=== PATIENT | male | born 1965 | race Caucasian/White ===

== ENCOUNTER 2022-04-29 13:40 | Emergency (ER) | payer BC, SELFPAY ==
--- NOTE | ~2022-04-29 | XR_ITS ---
XR chest 1V portable DATE: 04/29/2022 14:42 INDICATION: Dizziness. History of hypertension. TECHNIQUE: Portable AP chest COMPARISON: None FINDINGS: Normal heart size. No hilar or mediastinal enlargement. No pulmonary infiltrate or consolid ation, pleural effusion or pulmonary vascular congestion or pneumothorax is detected. There is degenerative spurring of the thoracic spine. IMPRESSION: No active cardiac pulmonary disease Reviewed, dictated and finalized at location [facility].
--- NOTE | ~2022-04-29 | CT_ITS ---
EXAMINATION: CT brain wo con DATE: 04/29/2022 14:39 INDICATION: Dizziness TECHNIQUE: Computed tomography (CT) of the head was performed without intravenous contrast. The mA wa s adjusted according to patient size. Iterative reconstruction technique was employed. Exam dose: 60 5.33 mGy-cm total exam DLP. COMPARISON: None FINDINGS: Mild bilateral carotid siphon internal carotid artery atherosclerotic calcification. No intracranial mass lesion or hemorrhage or cerebrovascular accident. No midline shift or mass effec t effect. Ventricular size is within normal range. No subdural or epidural hematoma. Orbital contents are unremarkable. No fracture or bone destruction of the cranial vault. Included mastoid air cells and paranasal sinuse s are normally developed and aerated. IMPRESSION: Mild cerebral atherosclerosis; no acute intracranial abnormality Reviewed, dictated and finalized at [facility]. Reviewed, dictated and finalized at location [facility].
[2022-04-29 13:46] VITALS: BP 156/93; PULSE 70; RESP 16; TEMP 36.6; O2SAT 98
--- NOTE | 2022-04-29 13:55 | ECG_ITS ---
Measurements Intervals [place] Rate: 61 P: 76 CO: 188 QRS: 44 QRSD: 87 T: 56 QT: 382 QTc: 385 Interpretive Statements SINUS RHYTHM NORMAL ECG NO PREVIOUS ECG AVAILABLE FOR COMPARISON Electronically Signed On 04-29-2022 14:11:10 CDT by Juan Mccullough D.O.
[2022-04-29 14:28] LABS: Basophils Absolute Auto 0.1 K/mm3 (0.0-0.1); Basophils Percent Auto 0.6 % (0.2-1.2); Eosinophils Absolute Auto 0.1 K/mm3 (0-0.3); Eosinophils Percent Auto 1.4 % (0-4.4); Hematocrit 47.7 % (42.0-52.0); Hemoglobin 16.2 g/dL (14.0-18.0); Immature Granulocyte Absolute 0.02 K/mm3 (0.00-0.031); Immature Granulocyte Percent A 0.2 % (0-0.5); Lymphocytes Absolute Auto 1.69 K/mm3 (0.9-3.2); Lymphocytes Percent Auto 20.9 % (18.3-44.2); Mean Corpuscular Hemoglobin 30.6 pg (26-34); Mean Corpuscular Volume 90.2 fl (80-100); Mean Platelet Volume 9.4 fl (7.4-10.4); Monocytes Absolute Auto 0.8 K/mm3 (0.1-0.6); Monocytes Percent Auto 9.9 % (2.6-8.5); Neutrophils Absolute Auto 5.4 K/mm3 (1.3-6.7); Platelet Count Result 226 k/mm3 (150-375); Red Blood Count 5.29 M/mm3 (4.6-6.20); Red Cell Distribution Width 12.5 % (11.5-14.5); White Blood Count 8.1 K/mm3 (4.5-10.0)
--- NOTE | 2022-04-29 14:33 | ED.DIZZY ---
HPI - Dizziness General Chief Complaint: Dizziness Stated Complaint: dizziness Time Seen by Provider: 04/29/22 14:19 History of Present Illness HPI Narrative: Pt complains of feeling of room spinning dizziness when moving head in certain ways for 3 days. Pt thought it might be related to missing a dose of his BP med. Pt denies YE or one sided weakness. Pt says it resolves when he keeps his head still. Related Data Allergies Allergy/AdvReac Type Severity Reaction Status Date / Time NO KNOWN DRUG ALLERGIES Allergy Y Uncoded 04/29/22 14:57 (Class Allergy) Review of Systems Review of Systems: All systems reviewed & are unremarkable except as noted in HPI and below Exam Const: General: healthy appearing and no acute distress Nutritional Appearance: well nourished Orientation/consciousness: patient oriented x3 Limitations: no limitations HENMT: Head: normal to inspection Ears: TM's normal bilaterally Throat: posterior oropharynx normal Eyes: Conjunctivae: conjunctivae normal EOM: EOMs intact bilaterally Neck: Neck: normal visual inspection, no lymphadenopathy and no meningeal signs Resp: Effort & Inspection: normal respiratory effort Auscultation: clear to auscultation bilaterally Cardio: Rate: regular rate Rhythm: regular rhythm GI: Auscultation: normal bowel sounds Back/Spine/Pelvis: Back: no CVA tenderness Skin: General skin exam: normal color Rashes: no rashes Wounds: no wounds Neuro: General: patient oriented x3, moves all extremities, no meningeal signs, no focal motor deficits and CN's II-XI intact bilaterally Cranial nerves: Yes Nystagmus not present Speech: normal speech Other: finger nose heal burk intact. symptoms reproduced when sitting up and improved when lying down and still. Extrem: General: normal to inspection and no clubbing, cyanosis or edema Psych: Mental Status: mental status grossly normal Affect: normal affect Attitude: cooperative Course Course Emergency Course: pt feels better after meds, ambulated steadily with assist ok to go home Vital Signs Vital signs: Vital Signs Temperature 97.9 F 04/29/22 13:46 Pulse Rate 70 04/29/22 13:46 Respiratory Rate 16 04/29/22 13:46 Blood Pressure 156/93 H 04/29/22 13:46 Pulse Oximetry 98 04/29/22 13:46 Oxygen Delivery Room Air 04/29/22 13:46 Temperature 97.9 F 04/29/22 13:46 Pulse Rate 57 L 04/29/22 16:00 Respiratory Rate 16 04/29/22 16:00 Blood Pressure 130/81 04/29/22 16:00 Pulse Oximetry 98 04/29/22 16:00 Oxygen Delivery Room Air 04/29/22 13:46 MDM - Dizziness Lab Data Result diagrams: 04/29/22 14:21 04/29/22 14:21 Labs: Lab Results 04/29/22 04/29/22 04/29/22 Range/Units 14:21 14:21 14:21 WBC 8.1 (4.5-10.0) K/mm3 RBC 5.29 (4.6-6.20) M/mm3 Hgb 16.2 (14.0-18.0) g/dL Hct 47.7 (42.0-52.0) % MCV 90.2 (80-100) fl MCH 30.6 (26-34) pg MCHC 34.0 (32-36) g/dl RDW 12.5 (11.5-14.5) % Plt Count 226 (150-375) k/mm3 MPV 9.4 (7.4-10.4) fl Immature Gran % (Auto) 0.2 (0-0.5) % Neut % (Auto) 67.0 (45.5-73.1) % Lymph % (Auto) 20.9 (18.3-44.2) % [place] % (Auto) 9.9 H (2.6-8.5) % Eos % (Auto) 1.4 (0-4.4) % Baso % (Auto) 0.6 (0.2-1.2) % Lymph # (Auto) 1.69 (0.9-3.2) K/mm3 [place] # (Auto) 0.8 H (0.1-0.6) K/mm3 Eos # (Auto) 0.1 (0-0.3) K/mm3 Baso # (Auto) 0.1 (0.0-0.1) K/mm3 Abs Immat Gran (auto) 0.02 (0.00-0.031) K/mm3 Absolute Neuts (auto) 5.4 (1.3-6.7) K/mm3 Absolute Nucleated RBC 0.0 (0.0-0.012) K/mm3 Nucleated RBC % 0.0 (0.0-0.2) % PT 12.4 (11.1-14.7) Seconds INR 1.0 APTT 28.6 (22.3-36.8) SECONDS Sodium 140 (137-145) mmol/L Potassium 3.4 (3.4-5.0) mmol/L Chloride 104 (98-107) mmol/L Carbon Dioxide 25 (22-30) mmol/L Anion Gap 11 (8-16) mmol/L BUN 18 (9-20) mg/dL Creatinine 1.20 (0.7-1.3)
--- NOTE | 2022-04-29 14:38 | PC.NURSE ---
Pt to XRAY and CT scan via stretcher.
[2022-04-29 14:39] LABS: Partial Thromboplastin Time 28.6 SECONDS (22.3-36.8); Prothrombin Time 12.4 Seconds (11.1-14.7)
[2022-04-29 14:40] LABS: Alanine Aminotransferase 28 U/L (6-50); Albumin Level 4.5 g/dL (3.5-5.1); Alkaline Phosphatase 105 U/L (38-126); Anion Gap 11 mmol/L (8-16); Aspartate Amino Transferase 28 U/L (17-59); Bilirubin,Total 1.1 mg/dL (0.2-1.3); Blood Urea Nitrogen 18 mg/dL (9-20); Calcium 9.1 mg/dL (8.4-10.2); Carbon Dioxide 25 mmol/L (22-30); Chloride 104 mmol/L (98-107); Estimated CRCL calculation 79 ml/min; Estimated Glomerular Filt Rate > 60; Glucose 95 mg/dL (65-110); Potassium 3.4 mmol/L (3.4-5.0); Sodium 140 mmol/L (137-145)
[2022-04-29 14:52] LABS: Troponin I < 0.012 ng/mL (0.000-0.034)
[2022-04-29 14:56] VITALS: BP 134/77; PULSE 56; RESP 15; O2SAT 97
[2022-04-29] MEDS: MECLIZINE HCL 25 MG TABLET 50 MG PO (14:56)
[2022-04-29 16:00] VITALS: BP 130/81; PULSE 57; RESP 16; O2SAT 98
== END 2022-04-29 15:58 | disposition home or self-care (01) ==
PROVIDERS: Emergency Medicine; Emergency Provider Emergency Medicine
DX: R42 Dizziness and giddiness (principal)
CPT/HCPCS: 36415; 70450; 71045; 80053; 84484; 85025; 85610; 85730; 93005; 99284; A9270

== ENCOUNTER 2022-06-25 12:54 | Emergency (ER) | payer BC, SELFPAY ==
--- NOTE | ~2022-06-25 | XR_ITS ---
XR knee LT 3V 06/25/2022 13:29 Indication: Left knee pain. No trauma. Procedure: 3 views left knee Comparison: No prior studies for comparison. Findings: There is mild patellofemoral compartment osteoarthritis. Small joint effusion. No fracture, subluxation or dislocation. No foreign bodies. Impression: 1: Mild patellofemoral compartment osteoarthritis. 2: Small joint effusion. Reviewed, dictated and finalized at location A. SSIONS NURSE Impression: 1: Mild patellofemoral compartment osteoarthritis. 2: Small joint effusion.
[2022-06-25 13:02] VITALS: BP 119/77; PULSE 90; RESP 16; TEMP 36.2; O2SAT 99
--- NOTE | 2022-06-25 13:23 | ED.GENADULT ---
HPI - General Adult General Chief complaint: Extremity Injury, Lower Stated complaint: lt knee pain Time Seen by Provider: 06/25/22 13:20 Source: patient Mode of arrival: ambulatory Limitations: no limitations History of Present Illness HPI narrative: 56 year old male presents to [facility] with complaints of left knee pain for about one week duration. Patient reports that he knows of no specific injury to his left knee other than his daily routine. He has not been applying ice to his knee or has not taken any anti-inflammatory medications routinely for discomfort. Patient reports that his discomfort increases with ambulation and weight bearing, states that he feels a tightness to his left knee. MD complaint: left knee pain Onset (ago): week(s) (1) Severity scale (1-10): 3 Treatments prior to arrival: NSAID (intermittent) and cold therapy Related Data Home Medications Medication Instructions Recorded Confirmed atorvastatin 40 mg tablet 40 mg PO DAILY 06/25/22 06/25/22 olmesartan 40 1 tablet PO DAILY 06/25/22 06/25/22 mg-hydrochlorothiazide 12.5 mg tablet Allergies Allergy/AdvReac Type Severity Reaction Status Date / Time NO KNOWN DRUG ALLERGIES Allergy Y Uncoded 06/25/22 13:00 (Class Allergy) Review of Systems Review of Systems: CONSTITUTIONAL: Denies fever, chills, or sweats. CARDIOVASCULAR: Denies chest pain, palpitations, or edema. RESPIRATORY: Denies cough or dyspnea. SKIN: Denies rash or itching. Denies laceration or abrasions MUSCULOSKELETAL: Reports pain to left knee anterior aspect described as tightness which increases with weight bearing. NEUROLOGIC: Denies numbness, or weakness. All systems reviewed & are unremarkable except as noted in HPI and below PMFSH Past Medical History Medical History (Updated 06/30/22 @ 06:42 by Gina Ayala NP) Elevated cholesterol Hypertension Social History Social History (Updated 06/30/22 @ 06:43 by Gina Ayala NP) Smoking status: Never smoker Alcohol intake: unknown Substance use: never Living arrangements: with family Gender identity (if verbalized by the patient): Male Comments At time of signature, agree with nursing past medical, surgical, social and family history. There is no relevant family history pertinent to the presenting complaint Exam Narrative: GENERAL: Well-appearing, well-nourished, and in no acute distress. HEAD: Normocephalic, atraumatic. EYES: PERRLA, conjunctivae clear NECK: Supple. CHEST: Speaks in full sentences. No respiratory distress.SAO2 99% on room air HEART: Regular rate and rhythm. Normal and equal peripheral pulses. EXTREMITIES:Left knee has normal strength and sensation, normal range of motion. No acute edema or ecchymosis. 5/5 strength with some discomfort with flexion and extension. Normal sensation with sensitivity to light touch and pain. No point tenderness.? ?No open wounds, no skin tenting, no devitalized tissue or atrophy, no trophic changes, no obvious deformity, alignment normal, nearby joints and structures intact. Distal pulses palpable and equal bilaterally, skin warm, dry, pink. Capillary refill less than 3 seconds. Course Course Emergency Course: Patient is aware of diagnosis, understands and agrees to treatment plan. Anticipatory guidance given. Patient agrees to follow-up as directed and is aware of reasons to seek care at the emergency department. Portions of this record may have been created with voice recognition software Level of Care: Express Care Visit Vital Signs Vital signs: Vital Signs Temperature 36.2 C L 06/25/22 13:02 Pulse Rate 90 06/25/22 13:02 Respiratory Rate 16 06/25/22 13:02 Blood Pressure 119/77 06/25/22 13:02 Pulse Oximetry 99 06/25/22 13:02 Temperature 36.2 C L 06/25/22 13:02 Pulse Rate 90 06/25/22 13:02 Respiratory Rate 16 06/25/22 13:02 Blood Pressure 119/77 06/25/22 13:02 Pulse Oximetry 99 06/25/22
== END 2022-06-25 13:54 | disposition home or self-care (01) ==
PROVIDERS: Emergency Provider Registered Nurse
DX: M25.562 Pain in left knee (principal); M25.462 Effusion, left knee; E78.00 Pure hypercholesterolemia, unspecified; I10 Essential (primary) hypertension
CPT/HCPCS: 73562; 99213; G0463

== ENCOUNTER 2024-10-10 17:30 | Emergency (ER) | payer BC, SELFPAY ==
[2024-10-10 17:39] VITALS: BP 134/85; PULSE 65; RESP 18; TEMP 36.3; O2SAT 99
--- NOTE | 2024-10-10 17:41 | ED.URI ---
HPI - URI/Sore Throat General Chief Complaint: Upper Respiratory Infection Stated Complaint: COLD/COUGH Time Seen by Provider: 10/10/24 18:32 Source: patient, RN notes reviewed and old records reviewed Mode of arrival: ambulatory Limitations: no limitations History of Present Illness HPI Narrative: Patient presents with complaints 1 week of cough with occasional wheezing, increased productivity of cough. States he is more tired than normal, denies any fevers. Has been taking [id number] medication, but continues to get worse instead of better. He is not in any obvious distress at this time Related Data Home Medications ?Medication ?Instructions ?Recorded ?Confirmed ?Last Taken ?Type atorvastatin 40 mg tablet 40 mg PO DAILY 06/25/22 06/25/22 Unknown History olmesartan 40 1 tablet PO DAILY 06/25/22 06/25/22 Unknown History mg-hydrochlorothiazide 12.5 mg tablet Allergies Allergy/AdvReac Type Severity Reaction Status Date / Time NO KNOWN DRUG ALLERGIES Allergy Y Uncoded 10/10/24 17:41 (Class Allergy) Review of Systems Review of Systems: All systems reviewed & are unremarkable except as noted in HPI and below Constitutional: Constitutional: Reports no additional constitutional complaints and Reports lethargy ENT: Reports system reviewed and no additional complaints, except as documented and Reports nasal discharge Cardiovascular: Cardiovascular: Reports no additional cardiovascular complaints Respiratory: Respiratory: Reports no additional respiratory complaints, Reports chest congestion, Reports cough, Reports excessive phlegm production and Reports wheezing Gastrointestinal: Gastrointestinal: Reports no additional gastrointestinal complaints [facility] Past Medical History Medical History (Updated 10/11/24 @ 00:01 by Mayte Galeana) Hypertension Elevated cholesterol Social History Social History (Updated 06/30/22 @ 06:43 by Gina Ayala NP) Smoking status: Never smoker Alcohol intake: unknown Substance use: never Living arrangements: with family Gender identity (if verbalized by the patient): Male Comments At the time of my signature, I reviewed and agree with the nursing past medical, surgical, social, and family history. There is no relevant family history pertinent to the patient complaint. Exam Const: General: cooperative, no acute distress, alert and awake Orientation/consciousness: oriented to person, oriented to place and oriented to time HENMT: Head: normal to inspection Mouth: Yes moist mucous membranes Resp: Effort & Inspection: normal respiratory effort and able to speak in complete sentences Auscultation: clear to auscultation bilaterally, no crackles, no rales, no rhonchi and wheezes (Mild scattered) Cardio: Palpation: normal PMI Rate: regular rate Rhythm: regular rhythm Heart sounds: S1 normal heart sound present and S2 normal heart sound present Neuro: General: oriented to person, oriented to place and oriented to time Cranial nerves: Yes CN's II-XII intact bilaterally Psych: Appearance: grossly normal Thought process: Normal thought process present Insight: Good insight present (Psych) Judgement: Good judgement present (Psych) Course Course Level of Care: Express Care Visit Vital Signs Vital signs: Vital Signs Temperature 97.3 F L 10/10/24 17:39 Pulse Rate 65 10/10/24 17:39 Respiratory Rate 18 10/10/24 17:39 Blood Pressure 134/85 10/10/24 17:39 Pulse Oximetry 99 10/10/24 17:39 Oxygen Delivery Room Air 10/10/24 17:39 Temperature 97.3 F L 10/10/24 17:39 Pulse Rate 65 10/10/24 17:39 Respiratory Rate 18 10/10/24 17:39 Blood Pressure 134/85 10/10/24 17:39 Pulse Oximetry 99 10/10/24 17:39 Oxygen Delivery Room Air 10/10/24 17:39 Reviewed MDM - URI/Sore Throat MDM Narrative Medical decision making narrative: History and exam consistent with bronchitis. Start steroids, azithromycin for additive anti-inflammatory property. Emergency department precautions discussed. Discharge instructions reviewed with patient, as well as provided in writing per nursing staff. The instructions also include specific and strict return/GO TO THE ER as well as f/u information. All questions have been answered, and the patient deny any further questions with discharge and discharge plan. Some parts of this dictation were generated by voice recognition software and may contain typographical and/or grammatical inaccuracies. Differential Diagnosis Differential diagnosis: Likely upper respiratory infection, otitis media, sinusitis, viral infection and bronchitis Medical Records Attestation: I reviewed the patient's medical records. Discharge Plan Discharge Clinical Impression: Bronchitis Patient Disposition: Home, Self-Care Condition: Stable Instructions: Antibiotic Form, Acute Bronchitis (ED) Additional Instructions: take medication as prescribed. Follow with primary care provider. Emergency department for new or worse symptoms Patient Language: Iraqi Prescriptions: New azithromycin 250 mg tablet See Rx Instructions .ROUTE .COMPLEX Qty: 6 0RF Rx Instructions: For 250 mg dose pack: take 500 mg today (day 1), then 250 mg for 4 days (days 2-5) prednisone 50 mg tablet 50 mg PO DAILY Qty: 5 0RF albuterol sulfate [Ventolin HFA] 90 mcg/actuation HFA aerosol inhaler 2 puff inhalation QID PRN (Reason: shortness of breath or wheezing) Qty: 8.5 0RF No Action atorvastatin 40 mg tablet 40 mg PO DAILY olmesartan-hydrochlorothiazide 40-12.5 mg tablet 1 tablet PO DAILY Follow-up/Referrals: Lacey,Jerman [Other] Time of Disposition: 18:48
== END 2024-10-10 18:50 | disposition home or self-care (01) ==
PROVIDERS: Emergency Provider Nurse Practitioner Family
DX: J40 Bronchitis, not specified as acute or chronic (principal); I10 Essential (primary) hypertension; E78.00 Pure hypercholesterolemia, unspecified
CPT/HCPCS: 99213; G0463